=== PATIENT | female | born 1995 | race Caucasian/White ===

== ENCOUNTER 2018-08-06 10:09 | Inpatient (IN) | payer OTHER ==
[2018-08-06] MEDS ORDERED: Sodium Chloride 0.9% 1,000 ML IV ONE (10:30)
--- NOTE | 2018-08-06 10:35 | ED Physician Chart ---
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, crampy, diffuse abdominal pain, N/V; pt denies trauma, H/As, S/T, neck pain, C/P, SOB, cough, A/D/C, fever, chills, VB, VD, bleeding, or urinary s/s Historian:: Patient, Family Member Review:: Nurse's Note Reviewed, Old Chart Reviewed ED Review of Systems - Review of Systems General/Constitutional: No fever, No chills, No weight loss, No weakness, No diaphoresis, No edema, No loss of appetite Skin: No skin lesions, No rash, No bruising Head: No headache, No light-headedness Eyes: No loss of vision, No pain, No diplopia ENT: No earache, No nasal drainage, No sore throat, No tinnitus Neck: No neck pain, No swelling, No thyromegaly, No stiffness, No mass noted Cardio Vascular: No chest pain, No palpitations, No PND, No orthopnea, No edema Pulmonary: No SOB, No cough, No sputum, No wheezing GI: Nausea, Vomiting, Diarrhea, Pain, No melena, No hematochezia, No constipation, No hematemesis G/U: No dysuria, No frequency, No hematuria, No nacturia Contract Paralegal: No vaginal discharge, No abnormal vaginal bleed, No contraction Musculoskeletal: No bone or joint pain, No back pain, No muscle pain Endocrine: No polyuria, No polydipsia Psychiatric: No prior psych history, No depression, No anxiety, No suicidal ideation, No homicidal ideation, No auditory hallucination, No visual hallucination Hematopoietic: No bruising, No lymphadenopathy Allergic/Immuno: No urticaria, No angioedema Neurological: No syncope, No focal symptoms, No weakness, No paresthesia, No headache, No seizure, No dizziness, No confusion, No vertigo ED Past Medical History - Past Medical History Obtainable: Yes Past Medical History: No significant medical hx Family History: None Social History: Non Smoker, No Alcohol, No Drug Use, Single, Lives With Parents Surgical History: None Psychiatricy History: None Medication: Reviewed ED Physical Exam - Physical Examination General/Constitutional: Awake, Well-developed, well-nourished, Alert, No distress, GCS 15, Non-toxic appearing, Ambulatory Head: Atraumatic Eyes: Lids, conjuctiva normal, PERRL, EOMI Skin: Nl inspection, No rash, No skin lesions, No ecchymosis, Well hydrated, No lymphadenopathy ENMT: External ears, nose nl, TM canals nl, Nasal exam nl, Lips, teeth, gums nl , Oropharynx nl, Tonsils nl Neck: Nontender, Full ROM w/o pain, No JVD, No nuchal rigidity, No bruit, No mass, No stridor Respiratory: Nl effort/Exclusion, Clear to Auscultation, No Wheeze/Rhonchi/Rales Cardio Vascular: RRR, No murmur, gallop, rubs, NL S1 S2, Carotid/Femoral/Distal pulses equal bilaterally GI: No organomegaly, No hernia, Normal BS's, Nondistended, No mass/bruits, No McBurney tenderness, Rectum exam nl Other GI comments:: + Tenderness; no pulsatile masses : No CVA tenderness Extremities: No tenderness or effusion, Full ROM, normal strength in all extremities, No edema, Normal digits & nails Neuro/Psych: Alert/oriented, DTR's symmetric, Normal sensory exam, Normal motor strength, Judgement/insight normal, Mood normal, Normal gait, No focal deficits Misc: Normal back, No paraspinal tenderness ED Labs/Radiology/EKG Results - Lab Results Comments:: Reviewed - Radiology Results Comments:: + Free Fluid; Possible Appendicitis - EKG Interpretations EKG Time:: 10:59 Rate & Rhythm: 62; NSR Comments:: non-specific st-t changes ED Septic Shock - . Is Septic Shock (SBP<90, OR Lactate>4 mmol\L) present?: No ED Reassessment (Disposition) - Reassessment Reassessment Condition:: Improved - Diagnosis Diagnosis:: Abdominal Pain; N/V/D; Appendicitis; - Aftercare/Follow up Instructions Aftercare/Follow-Up Instructions:: Counseled pt regarding lab results/diagnosis & need follow up, Counseled pt & family regarding lab results/diagnosis & need follow up - Patient Disposition Discharge/Transfer:: Acute Care w/in this hosp Accepting Physician:: Dr. Botello Time Called:: 1230 Time Responded:: 12:30 Admitted to:: Med/Surg Spoke to:: Dr. Botello Admitting Medical Physician:: Dr. Botello Condition at Disposition:: Stable, Improved
[2018-08-06] MEDS ORDERED: Morphine Sulfate 2 mg/mL 1mL Syr ONE ×2 (11:01→15:51)
[2018-08-06] MEDS ORDERED: Morphine Sulfate 2 mg/mL 1mL Syr IV STA ×2 (11:02→15:46)
[2018-08-06 11:07] LABS: % BASOPHILS 1.1 % (0.0-2.0); % EOSINOPHILS 0.7 % (0.0-5.0); % LYMPHOCYTES 15.6 % (20.0-50.0); % MONOCYTES 5.1 % (2.0-10.0); % NEUTROPHILS 77.5 % (40.0-80.0); BASOPHILE ABSOLUTE 0.1 Th/cumm (0-0.2); EOSINOPHILE ABSOLUTE 0.1 Th/cmm (0.1-0.4); HEMATOCRIT 40.9 % (41.0-60); HEMOGLOBIN 13.6 gm/dL (12-16); LYMPHOCYTE ABSOLUTE 1.6 Th/cmm (1.5-3.0); MEAN CELL VOLUME 87.7 fl (81-100); MEAN CORPUSCULAR HEMOGLOBIN 29.1 pg (27.0-31.0); MEAN CORPUSCULAR HGB CONC 33.2 pg (28.0-36.0); MONOCYTE ABSOLUTE 0.5 Th/cmm (0.3-1.0); NEUTROPHILE ABSOLUTE 7.7 Th/cmm (1.8-8.0); PLATELET COUNT 233 Th/cmm (150-400); RED BLOOD COUNT 4.66 Mil/cmm (3.80-5.10); RED CELL DISTRIBUTION WIDTH 12.1 % (11.5-20.0)
[2018-08-06 11:11] LABS: INR 0.96 (0.5-1.4)
[2018-08-06 11:16] LABS: ALB/GLOB RATIO 1.6 (1.0-1.8); ALBUMIN 4.3 gm/dL (3.7-5.3); ALKALINE PHOSPHATASE 65 U/L (34-104); AMYLASE SERUM 48 U/L (29-103); ANION GAP 15.3 (7.0-16.0); BILIRUBIN,TOTAL 0.3 mg/dL (0.3-1.0); BUN - UREA NITROGEN 6 mg/dL (7-25); CALCIUM SERUM 9.5 mg/dL (8.6-10.3); CARBON DIOXIDE 24.4 mEq/L (21.0-31.0); CHLORIDE 102 mEq/L (98-107); CHOLESTEROL 153 mg/dL (<200); CREATININE - SERUM 0.6 mg/dL (0.6-1.2); CREATININE KINASE 65 U/L (30-223); GFR AFRICAN-AMERICAN > 60.0 ml/min (>90); GFR NON AFRICAN-AMERICAN > 60.0 ml/min; GLUCOSE 116 mg/dL (70-105); HDL -HIGH DENSITY LIPOPROTEIN 37 mg/dL (23-92); LIPASE 22 U/L (11-82); POTASSIUM SERUM 3.7 mEq/L (3.5-5.1); SGOT 14 U/L (13-39); SGPT/ALT 12 U/L (7-52); SODIUM SERUM 138 mEq/L (136-145); TRIGLYCERIDES 122 mg/dL (<150)
--- NOTE | 2018-08-06 13:32 | Diagnostic Imaging Report ---
Exam: CT scan of the abdomen and pelvis with intravenous contrast History: Abdominal pain, appendicitis Total DLP equals 509 CTDI equals 10.9 Findings: Exam of the liver demonstrates a normal size and contour. No focal lesions are seen. The spleen is enlarged. No abnormalities are seen in the region of the pancreas. The kidneys appear normal bilaterally. Small, nonobstructing 1 mm calcification is noted in the right kidney. No focal lesions or hydronephrosis. There is evidence for high density area in the appendix which might represent a appendicolith, appendicitis cannot be excluded. There is no evidence of diverticular disease of diverticulitis. Moderate amount of fecal content is noted in colon. The exam of the pelvis demonstrates preservation of normal fat planes. There is evidence of small free fluid collection the pelvis. There is a question of bilateral ovarian cyst, left ovary is enlarged. Ultrasound examination of pelvis might be helpful. IMPRESSION: Dense material in the appendix might represent appendicoliths, appendicitis cannot be excluded this also may represent residual contrast material from prior examination. Clinical correlation recommended. Small amount of free fluid in the pelvis Ovarian cysts. Enlarged ovaries, ultrasound exam of pelvis recommended. Nonobstructing 1 mm calcification the right kidney.
[2018-08-06] MEDS ORDERED: Morphine Sulfate 2 mg/mL 1mL Syr IM PRN (19:28)
[2018-08-06 19:34] VITALS: BP 118/77
[2018-08-06] MEDS ORDERED: Morphine Sulfate 2 mg/mL 1mL Syr IVP PRN (19:52)
[2018-08-06] MEDS ORDERED: Piperacillin Sodium/Tazobact 3.375 gm Vial IV ONE (20:00)
[2018-08-06] MEDS ORDERED: D5-0.45NS w/10 mEq KCL 1,000 ML IV ONE (20:00)
[2018-08-06] MEDS: metroNIDAZOLE 500mg/NS 100mL 500 MG/100 ML BAG IV SCH (21:28)
[2018-08-07] MEDS ORDERED: Piperacillin Sodium/Tazobact 3.375 gm Vial IV ONE ×2 (00:26→06:03)
[2018-08-07] MEDS ORDERED: fentaNYL Citrate 100 mcg/2mL Vial ONE ×2 (01:40→01:41)
[2018-08-07] MEDS ORDERED: Propofol **SURGERY USE ONLY** 20 ML IV ONE (01:41)
[2018-08-07] MEDS ORDERED: Neostigmine 10mg/10mL Vial ONE (01:41)
[2018-08-07] MEDS ORDERED: Bupivacaine 0.25% W/Ep 10 mL Vial ONE (02:02)
[2018-08-07] MEDS ORDERED: Meperidine 25 mg/mL 1mL Syr ONE (02:49)
[2018-08-07] MEDS ORDERED: Morphine Sulfate 2 mg/mL 1mL Syr ONE (03:12)
--- NOTE | 2018-08-07 03:43 | Operative Report ---
DATE OF SURGERY: 08/06/2018 PREOPERATIVE DIAGNOSIS: A 22-year-old, presents with rule out early acute appendicitis. POSTOPERATIVE DIAGNOSIS: A 22-year-old, presents with rule out early acute appendicitis. PROCEDURE: Laparoscopic appendectomy. DESCRIPTION OF PROCEDURE: Under general anesthesia, the patient was prepped and draped in usual sterile fashion. Dr. Sanchez, being the anesthesiologist. A 5 mm port site was suprapubic and two 10-12 in the umbilical in the left lower quadrant. The patient was placed head down and right side up. The appendix was immediately found, it looked not too inflamed. There was a minimal amount of fluid around the pelvis and the mesoappendix was taken with the EnSeal and the staple line was placed at the level of the lower part of the appendix and was retrieved. There was a stump of appendix that was left. We then made sure that we got to the base of the cecum and stapled it in a curvilinear fashion, keeping the base of the appendix away from the cecum and sending this second specimen to pathology for analysis. The rest of the peritoneal cavity appeared normal. We suction irrigated until clear and we retrieved the excess CO2 gas. The patient had the 10-12 sites closed with 0 Vicryl and the skin with zeke. Marcaine was used. The patient tolerated the procedure well. All instrument, sponge count and needle counts were correct. JOB# [id number]
[2018-08-07] MEDS: Morphine Sulfate 4 mg/mL 1mL Syr IVP PRN ×2 (04:13→17:11)
[2018-08-07] MEDS: D5-0.45NS 1,000 ML IV SCH ×2 (04:16→19:20)
[2018-08-07] MEDS: metroNIDAZOLE 500mg/NS 100mL 500 MG/100 ML BAG IV SCH ×3 (04:50→22:37)
[2018-08-07 06:02] LABS: HEMOGLOBIN 13.5 gm/dL (12-16)
[2018-08-07 06:06] LABS: HEMATOCRIT 39.5 % (41.0-60); MEAN CELL VOLUME 87.7 fl (81-100); MEAN CORPUSCULAR HGB CONC 34.2 pg (28.0-36.0); MEAN PLATELET VOLUME 9.6 fl; PLATELET COUNT 210 Th/cmm (150-400); RED CELL DISTRIBUTION WIDTH 12.6 % (11.5-20.0)
[2018-08-07 06:12] LABS: WHITE BLOOD COUNT 15.2 Th/cmm (4.8-10.8)
[2018-08-07 06:17] LABS: ALB/GLOB RATIO 1.7 (1.0-1.8); ALBUMIN 4.1 gm/dL (3.7-5.3); ALKALINE PHOSPHATASE 61 U/L (34-104); ANION GAP 12.8 (7.0-16.0); BILIRUBIN,TOTAL 0.3 mg/dL (0.3-1.0); BUN - UREA NITROGEN 3 mg/dL (7-25); CALCIUM SERUM 8.8 mg/dL (8.6-10.3); CARBON DIOXIDE 23.4 mEq/L (21.0-31.0); CHLORIDE 106 mEq/L (98-107); CREATININE - SERUM 0.5 mg/dL (0.6-1.2); GFR AFRICAN-AMERICAN > 60.0 ml/min (>90); GFR NON AFRICAN-AMERICAN > 60.0 ml/min; GLUCOSE 121 mg/dL (70-105); POTASSIUM SERUM 3.2 mEq/L (3.5-5.1); SGOT 13 U/L (13-39); SGPT/ALT 11 U/L (7-52); SODIUM SERUM 139 mEq/L (136-145); TOTAL PROTEIN,SERUM 6.5 gm/dL (6.0-8.3)
[2018-08-07 06:49] LABS: ATYPICAL LYMPH 2 %; BAND NEUTROPHILE 5 % (0-10); BASOPHIL 0 % (0-3); EOSINOPHIL 0 % (0-5); LYMPHOCYTE 7 % (20-50); MONOCYTE 3 % (2-10); NEUTROPHILS 83 % (40-80)
[2018-08-07] MEDS: KCL 20mEq/100mL Premix 20 MEQ/100 ML PIGGYBACK IV SCH ×2 (08:26→10:54)
--- NOTE | 2018-08-07 09:49 | Diagnostic Imaging Report ---
Abdominal ultrasound (Limited) The worksheet and sonographic images are mislabeled. Limited images of the right lower quadrant (not left lower quadrant) are provided. No abnormal masses or fluid collections are seen. The appendix cannot be clearly visualized. The remainder of the intra-abdominal organs not evaluated this time. IMPRESSION: 1. Note correction as images of the right lower quadrant (not left lower quadrant) are provided 2. No abnormal masses or fluid collections sonographically seen.
--- NOTE | 2018-08-07 14:13 | History & Physical ---
ADMIT DATE: CHIEF COMPLAINT: Right-sided abdominal pain. HISTORY OF PRESENT ILLNESS: This is a 22-year-old female with no medical history who presented to the ER with a 3 hour history of intermittent crampy, diffuse abdominal pain, mostly located on the right abdominal area. She also had nausea, vomiting, but denies any diarrhea, fever or chills. She also denies any unusual p.o. intake or similar episodes in the past. At the ER, pertinent findings include a normal white count and a CT of the abdomen and pelvis showing consistency with acute appendicitis. The patient has undergone lap appendectomy and is currently residing in the medical/surgical floor. She appears to be comfortable, although complaining of some pain at the incisional site. PAST MEDICAL HISTORY: None. PAST SURGICAL HISTORY: Previous to the lap appy none. FAMILY HISTORY: Likely noncontributory to this admission. SOCIAL HISTORY: Denies any tobacco, ETOH or illicit drug usage. She lives at home with family. ALLERGIES: NKDA. OUTPATIENT MEDICATIONS: None. PHYSICAL EXAMINATION: VITAL SIGNS: Temperature 99.2, T-max 99.4, pulse 102, respirations 17, BP 133/82, satting 98% on room air. GENERAL: Well-developed, well-nourished female, not in acute distress. She is currently asleep, but appears to be comfortable, nontoxic. HEAD AND NECK: Normocephalic, atraumatic. Pupils reactive to light. Extraocular movements are intact. Oropharynx moist and clear. CARDIOVASCULAR: Regular rate and rhythm without any murmurs. LUNGS: Clear to auscultation bilaterally. ABDOMEN: Soft, supple with tenderness to palpation around the incisional site, otherwise benign with no peritoneal signs. Currently, there are hypoactive bowel sounds. LOWER EXTREMITIES: There is no pedal edema. LABORATORY DATA: Postop white count 15.2, H and H 13/39 with platelets of 210, 83% neutrophils. Potassium 3.2, sodium 139, BUN 3, creatinine 0.5, glucose 121. LFTs were within normal limits. Lipase 22. Serum was negative. DIAGNOSTIC DATA: Please refer to the HPI. IMPRESSION: 1. Acute appendicitis, status post lap appy. 2. Postop leukocytosis. 3. Postop hypokalemia. PLAN: The patient will continue to reside at the medical/surgical floor where she will be kept on IV fluids, IV antibiotics, namely Zosyn and Flagyl, pain management and IV PPI. We will continue with postop care and monitor labs on a daily basis. Diet will be advanced per surgeries orders. [facility]# [id number]
[2018-08-08] MEDS: metroNIDAZOLE 500mg/NS 100mL 500 MG/100 ML BAG IV SCH ×3 (05:38→21:30)
[2018-08-08 07:05] LABS: % BASOPHILS 0.9 % (0.0-2.0); % EOSINOPHILS 0.9 % (0.0-5.0); % LYMPHOCYTES 32.1 % (20.0-50.0); % MONOCYTES 10.6 % (2.0-10.0); % NEUTROPHILS 55.5 % (40.0-80.0); HEMATOCRIT 38.5 % (41.0-60); HEMOGLOBIN 12.8 gm/dL (12-16); LYMPHOCYTE ABSOLUTE 1.8 Th/cmm (1.5-3.0); MEAN CORPUSCULAR HEMOGLOBIN 29.6 pg (27.0-31.0); MEAN CORPUSCULAR HGB CONC 33.3 pg (28.0-36.0); MEAN PLATELET VOLUME 9.8 fl; MONOCYTE ABSOLUTE 0.6 Th/cmm (0.3-1.0); NEUTROPHILE ABSOLUTE 3.1 Th/cmm (1.8-8.0); PLATELET COUNT 196 Th/cmm (150-400); RED BLOOD COUNT 4.33 Mil/cmm (3.80-5.10); RED CELL DISTRIBUTION WIDTH 12.5 % (11.5-20.0); WHITE BLOOD COUNT 5.5 Th/cmm (4.8-10.8)
[2018-08-08 07:19] LABS: ANION GAP 10.1 (7.0-16.0); BUN - UREA NITROGEN 4 mg/dL (7-25); CALCIUM SERUM 8.6 mg/dL (8.6-10.3); CARBON DIOXIDE 25.4 mEq/L (21.0-31.0); CHLORIDE 110 mEq/L (98-107); CREATININE - SERUM 0.5 mg/dL (0.6-1.2); GFR AFRICAN-AMERICAN > 60.0 ml/min (>90); GFR NON AFRICAN-AMERICAN > 60.0 ml/min; GLUCOSE 95 mg/dL (70-105); MAGNESIUM 2.2 mg/dL (1.9-2.7); POTASSIUM SERUM 3.5 mEq/L (3.5-5.1); SODIUM SERUM 142 mEq/L (136-145)
[2018-08-08] MEDS ORDERED: Morphine Sulfate 2 mg/mL 1mL Syr IVP PRN (08:00)
--- NOTE | 2018-08-08 14:38 | Pathology Report ---
[id number] Collection Date: 08/07/2018 Surgeon: Dr. Ryann Vargas Specimen Description: Appendix. Gross Description: Received in formalin is a 4.5 cm in length x 0.6 cm in diameter intact appendix with a small amount of attached yellow fatty tissue. Sectioning shows an intact appendix wall and lumen with a smooth glistening outer serosal surface. There is no evidence for exudate. The appendix is totally submitted in two cassettes labeled A1 and A2. Microscopic Description: The histologic sections show appendix with an intact wall and lumen. Focal areas of mild chronic inflammation are identified consisting of increased numbers of lymphocytes within the mucosal surfaces. There is no evidence for acute inflammation. Diagnosis: Mild nonspecific chronic inflammation, appendix. Comment: There is no evidence for acute appendicitis. Clinical correlation is recommended to determine if further studies are warranted. [facility]# [id number] MTDD
[2018-08-08] MEDS: D5-0.45NS 1,000 ML IV SCH (20:49)
[2018-08-09] MEDS: metroNIDAZOLE 500mg/NS 100mL 500 MG/100 ML BAG IV SCH (04:26)
[2018-08-09 06:18] LABS: % BASOPHILS 0.5 % (0.0-2.0); % EOSINOPHILS 1.2 % (0.0-5.0); % LYMPHOCYTES 33.3 % (20.0-50.0); % MONOCYTES 8.1 % (2.0-10.0); % NEUTROPHILS 56.9 % (40.0-80.0); EOSINOPHILE ABSOLUTE 0.1 Th/cmm (0.1-0.4); HEMATOCRIT 34.8 % (41.0-60); HEMOGLOBIN 11.5 gm/dL (12-16); LYMPHOCYTE ABSOLUTE 1.9 Th/cmm (1.5-3.0); MEAN CELL VOLUME 88.4 fl (81-100); MEAN CORPUSCULAR HEMOGLOBIN 29.3 pg (27.0-31.0); MEAN CORPUSCULAR HGB CONC 33.1 pg (28.0-36.0); MEAN PLATELET VOLUME 10.1 fl; MONOCYTE ABSOLUTE 0.5 Th/cmm (0.3-1.0); NEUTROPHILE ABSOLUTE 3.2 Th/cmm (1.8-8.0); PLATELET COUNT 201 Th/cmm (150-400); RED BLOOD COUNT 3.94 Mil/cmm (3.80-5.10); RED CELL DISTRIBUTION WIDTH 12.3 % (11.5-20.0); WHITE BLOOD COUNT 5.7 Th/cmm (4.8-10.8)
[2018-08-09 07:18] LABS: ANION GAP 12.4 (7.0-16.0); BUN - UREA NITROGEN 5 mg/dL (7-25); CALCIUM SERUM 8.5 mg/dL (8.6-10.3); CARBON DIOXIDE 23.8 mEq/L (21.0-31.0); CHLORIDE 110 mEq/L (98-107); CREATININE - SERUM 0.5 mg/dL (0.6-1.2); GFR AFRICAN-AMERICAN > 60.0 ml/min (>90); GFR NON AFRICAN-AMERICAN > 60.0 ml/min; GLUCOSE 91 mg/dL (70-105); POTASSIUM SERUM 3.2 mEq/L (3.5-5.1); SODIUM SERUM 143 mEq/L (136-145)
[2018-08-09] MEDS ORDERED: Potassium Chloride 20 mEq ER Tab PO SCH (10:45)
--- NOTE | 2018-08-11 00:12 | Discharge Summary ---
DATE OF DISCHARGE: 08/09/2018 ADMITTING DIAGNOSES: Acute appendicitis, leukocytosis. DISCHARGE DIAGNOSES: 1. Acute appendicitis, status post laparoscopic appendectomy. 2. Leukocytosis - resolved. CONSULTANTS: Dr. Vargas, Surgery. MAJOR PROCEDURES: She underwent a laparoscopic appendectomy on 08/07/2018 without any complications. SIGNIFICANT FINDINGS: On 08/06/2018, the patient had a CT of the abdomen and pelvis showing dense material in the appendix, which may represent appendicolith. Appendicitis cannot be excluded. On 08/06/2018, abdominal ultrasound showed no abnormal masses or fluid collections noted. BRIEF HOSPITAL COURSE: 22-year-old female who presented to the ER with 3-hour history of intermittent, crampy, diffuse abdominal pain, more pronounced on the right lower quadrant. She underwent above-mentioned diagnostics and was admitted to the medical/surgical floor for further management and care. She was placed on IV fluids, IV antibiotics and pain management. She underwent above-mentioned procedure without any complications, and her postop care was uneventful. Her vital signs remained stable throughout her hospital stay and postoperative labs yielded a white count of 15.2, which improved to a level of 5.5 by 08/08/2018. CONDITION ON DISCHARGE: Stable. MEDICATIONS ON DISCHARGE: Cipro 250 b.i.d. x 7 days, Tylenol 500 q. 4 p.r.n. for pain, Zofran 4 mg q. 4 p.r.n. for nausea, vomiting and omeprazole 20 mg every day x15 days. DISPOSITION: The patient was discharged home to self-care. I instructed the patient to follow up her primary care doctor within 3-5 days and to follow up with Surgery as scheduled. JOB# [id number] ENRRIQUE
== END 2018-08-09 11:15 | disposition home or self-care (01) | DRG 234 ==
LOC: ER 10:09 → MSI 18:22 → OBSVTOIN 18:22
PROVIDERS: ADMIT Internal Medicine; ATTEND Internal Medicine
PROC: 0DTJ4ZZ Resection of Appendix, Percutaneous Endoscopic Approach (ICD-10-PCS; principal; 2018-08-06)
DX: K35.80 Unspecified acute appendicitis (principal); D72.829 Elevated white blood cell count, unspecified; E87.6 Hypokalemia
CPT/HCPCS: 36415-UA; 76705-TC; 80048-TC; 80053-TC; 80061-TC; 82150-TC; 82550-TC; 82948-90; 83690-TC; 83735-TC; 83880-TC; 84484-TC; 84703-TC; 85007-TC; 85025-TC; 85610-TC; 90799; 93005; 94760; 96372; 96374; 96375; 96376; 97535; C9113; J1885; J2270; J2405; J2543; J2704; J2710; J3010; J3480; J7030; X6026; X6258; Z7610